=== PATIENT | male | born 1955 | race Caucasian/White ===

== ENCOUNTER 2018-04-28 07:20 | Day surgery (SDC) | payer OTHER ==
[~2018-04-28] VITALS: Ht 177.8 cm; Wt 152.9 kg
[~2018-04-28 07:20] MED LIST: ALBU90OI; ALBU90OI INH; Avapro300 MG PO; DEXL60CA3 PO; ESOM20 PO; HYDACE5 PO; HYDCHL25 PO; METO10 PO; MOXI400 PO; POLTRIOPSO OS; PROM25 PO; Robaxin-750750 MG PO; TAMS.4ER PO
== END 2018-04-28 09:50 | disposition home or self-care (01) ==
LOC: ORSCSDS 07:20
PROVIDERS: Internal Medicine Gastroenterology
PROC: 0DBN8ZX Excision of Sigmoid Colon, Via Natural or Artificial Opening Endoscopic, Diagnostic (ICD-10-PCS; principal; 2018-04-28 08:30)
PROC: 0DBM8ZX Excision of Descending Colon, Via Natural or Artificial Opening Endoscopic, Diagnostic (ICD-10-PCS; principal; 2018-04-28 08:30)
DX: Z12.11 Encounter for screening for malignant neoplasm of colon (principal); D12.5 Benign neoplasm of sigmoid colon; D12.4 Benign neoplasm of descending colon; K64.8 Other hemorrhoids; I10 Essential (primary) hypertension; G47.33 Obstructive sleep apnea (adult) (pediatric); E66.01 Morbid (severe) obesity due to excess calories; Z68.42 Body mass index [BMI] 45.0-49.9, adult; Z79.899 Other long term (current) drug therapy
CPT/HCPCS: 88305; J0330; J1980; J2405; J7120

== ENCOUNTER 2020-03-21 08:48 | Day surgery (SDC) | payer BC ==
[~2020-03-21] VITALS: Ht 177.8 cm; Wt 163.3 kg
[~2020-03-21 08:48] MED LIST changes: +PANTOPRAZOLE SO20 MG PO
--- NOTE | 2020-03-21 09:49 | NUR ---
Ambulatory in Day Surgery History, Chart, Medications and Allergies reviewed before start of procedure.Patient confirms NPO status and agrees with scheduled surgery. Pre-Op teaching done. Pt verbalizes understanding.
--- NOTE | 2020-03-21 10:53 | NUR ---
03/21/20 1053 Katie Stearns MONITOR INTACT WITH CONTINUOUS PULSE OXIMETRY AND INTERMITTENT BP.
--- NOTE | 2020-03-21 12:00 | NUR ---
PT ABLE TO DRESS INDEPENDANTLY. DENIES QUESTIONS REGARDING D/C INSTRUCTIONS. PT DENIES PAIN OR NAUSEA. ABLE TO TOLERATE PO INTAKE.
== END 2020-03-21 11:22 | disposition home or self-care (01) ==
LOC: ORSCMMR 08:48
PROVIDERS: Internal Medicine Gastroenterology
PROC: 0DB68ZX Excision of Stomach, Via Natural or Artificial Opening Endoscopic, Diagnostic (ICD-10-PCS; principal; 2020-03-21 10:15)
PROC: 0DB58ZX Excision of Esophagus, Via Natural or Artificial Opening Endoscopic, Diagnostic (ICD-10-PCS; principal; 2020-03-21 10:15)
DX: K21.9 Gastro-esophageal reflux disease without esophagitis (principal); I10 Essential (primary) hypertension; G47.33 Obstructive sleep apnea (adult) (pediatric); Z79.899 Other long term (current) drug therapy; E11.9 Type 2 diabetes mellitus without complications
CPT/HCPCS: 88305; 88342; A9270; J2250; J2405; J2704; J7120

== ENCOUNTER 2022-12-17 08:02 | Day surgery (SDC) | payer OTHER ==
[~2022-12-17] VITALS: Ht 177.8 cm; Wt 156.2 kg
[2022-12-17] MEDS ORDERED: ATOR20 PO (08:42)
[2022-12-17] MEDS ORDERED: IRBE150 PO (08:42)
[2022-12-17] MEDS ORDERED: ESCI10 PO (08:42)
[2022-12-17] MEDS ORDERED: SPIR25 PO (08:43)
[2022-12-17] MEDS ORDERED: METF500 PO (08:43)
[2022-12-17] MEDS ORDERED: TAMS.4ER PO (08:43)
[2022-12-17 08:52] VITALS: BP 138/81
--- NOTE | 2022-12-17 09:06 | NUR ---
12/17/22 [address] ANGELES'S SEDATION RECORD.
[2022-12-17 09:15] VITALS: BP 125/87
[2022-12-17 09:30] VITALS: BP 125/87
--- NOTE | 2022-12-17 09:46 | NUR ---
DISCHARGE NOTE PT A&OX4, BREATHING RA, VSS, TOLERATING PO FLUIDS. ABDOMEN IS SOFT AND NON-TENDER. Discharge instructions reviewed with patient. Patient verbalizes understanding. Copy given to patient to take home.PT ABLE TO DRESS INDEPENDENTLY C RN AT BEDSIDE. Discharged via wheelchair to private car for ride home.
== END 2022-12-17 09:42 | disposition home or self-care (01) ==
LOC: ORSCMMR 08:02 → ORD 09:30 → ORSCMMR 09:30
PROVIDERS: Internal Medicine Gastroenterology
PROC: 0DJD8ZZ Inspection of Lower Intestinal Tract, Via Natural or Artificial Opening Endoscopic (ICD-10-PCS; principal; 2022-12-17 09:30)
DX: Z12.11 Encounter for screening for malignant neoplasm of colon (principal); Z86.010 Personal history of colon polyps; K57.30 Diverticulosis of large intestine without perforation or abscess without bleeding; K64.8 Other hemorrhoids; G47.33 Obstructive sleep apnea (adult) (pediatric); E78.5 Hyperlipidemia, unspecified; I10 Essential (primary) hypertension; K21.9 Gastro-esophageal reflux disease without esophagitis; K75.81 Nonalcoholic steatohepatitis (NASH); Z79.899 Other long term (current) drug therapy
CPT/HCPCS: 82947; J2704; J7120

== ENCOUNTER 2023-10-02 08:00 | Emergency (ER) | payer OTHER ==
[~2023-10-02] VITALS: Ht 177.8 cm; Wt 154.2 kg
[~2023-10-02 08:00] MED LIST changes: +ATOR20 PO; +ESCI10 PO; +IRBE150 PO; +METF500 PO; +SPIR25 PO
[2023-10-02 08:29] LABS: BASOPHILS ABSOLUTE AUTO 0.09 K/mm3 (0.00-0.23); BASOPHILS PERCENT AUTO 1 % (0-2); EOSINOPHILS ABSOLUTE AUTO 0.11 K/mm3 (0.00-0.68); EOSINOPHILS PERCENT AUTO 1 % (0-6); Hematocrit 45.1 % (37.0-53.0); Hemoglobin 15.3 g/dL (13.5-17.5); IMMATURE GRAN PERCENT AUTO 1 % (0-1); LYMPHOCYTES ABSOLUTE AUTO 1.75 K/mm3 (0.84-5.20); LYMPHOCYTES PERCENT AUTO 14 % (21-46); MONOCYTES ABSOLUTE AUTO 0.32 K/mm3 (0.16-1.47); MONOCYTES PERCENT AUTO 3 % (4-13); Mean Corpuscular HGB 28.7 pg (26.0-34.0); Mean Corpuscular HGB Conc 33.9 g/dL (31.5-36.5); Mean Corpuscular Volume 85 fL (80-100); Mean Platelet Volume 10.4 fL (9.1-12.4); NEUTROPHILS ABSOLUTE AUTO 10.21 K/mm3 (1.96-9.15); NEUTROPHILS PERCENT AUTO 81 % (41-73); Platelet Count 262 K/mm3 (150-400); RDW Coefficient Variation 13.1 % (11.7-14.2); RDW Standard Deviation 40.2 fL (35.1-46.3); Red Blood Cell Count 5.33 M/mm3 (4.30-5.90); White Blood Cell Count 12.58 K/mm3 (4.00-11.30)
[2023-10-02] MEDS ORDERED: NS 1,000 ML IV SCH (08:40)
[2023-10-02] MEDS ORDERED: Morphine Sulfate 4 MG/1 ML Injection IV ONE (08:40)
[2023-10-02 08:46] LABS: Albumin, Blood 3.8 g/dL (3.4-5.0); Albumin/Globulin Ratio 0.9 (0.8-1.8); Bilirubin, Total 1.4 mg/dL (0.1-1.0); Bun/Creatinine Ratio 21.9 (12.0-20.0); Creatinine, Blood 0.96 mg/dL (0.60-1.20); Globulin, Blood 4.2 g/dL (2.2-4.0); Potassium, Blood 4.3 mmol/L (3.5-5.5)
[2023-10-02] MEDS ORDERED: Methocarbamol 500 MG Tab PO ONE (11:15)
[2023-10-02] MEDS ORDERED: Ketorolac Tromethamine 30mg Vial IV ONE (11:15)
[2023-10-02] MEDS ORDERED: Robaxin750 MG PO (11:20)
[2023-10-02 12:30] VITALS: BP 154/85
== END 2023-10-02 12:30 | disposition home or self-care (01) ==
LOC: ER 08:00
PROVIDERS: Student in an Organized Health Care Education/Training Program
DX: R05.8 Other specified cough (principal); R07.89 Other chest pain; G89.29 Other chronic pain; Z87.81 Personal history of (healed) traumatic fracture; Z88.5 Allergy status to narcotic agent; Z79.899 Other long term (current) drug therapy
CPT/HCPCS: 71046; 80053; 82248; 83735; 83880; 84484; 85025; 93005; 93010; 96361; 96374; 96375; 99284-25; A9270; J1885; J2270; J7030

== ENCOUNTER 2024-09-19 03:00 | Day surgery (SDC) | payer OTHER ==
[~2024-09-19 03:00] MED LIST changes: +Robaxin750 MG PO
[2024-09-19] MEDS ORDERED: Cosyntropin 0.25 MG / ML 1ML Vial IM SCH (08:30)
[2024-09-19 08:36] VITALS: BP 142/77
[2024-09-19] MEDS ORDERED: OZEMPIC1 MG/0.72 SC (08:56)
[2024-09-19] MEDS ORDERED: BUPR150ER PO (08:56)
[2024-09-19] MEDS ORDERED: DIFL500 PO (08:57)
[2024-09-19] MEDS ORDERED: LANS30EC PO (08:57)
[2024-09-19] MEDS ORDERED: CYCL10 PO (08:59)
[2024-09-19] MEDS ORDERED: GUMMY FIBER PO (09:00)
== END 2024-09-19 09:56 | disposition home or self-care (01) ==
LOC: ATC 03:00
DX: E27.1 Primary adrenocortical insufficiency (principal); E11.9 Type 2 diabetes mellitus without complications
CPT/HCPCS: 36415; 80400; 82533; 96372; J0834